=== PATIENT | female | born 1995 | race Caucasian/White ===

== ENCOUNTER 2021-08-14 23:16 | Observation (INO) | payer MEDICAID, OTHER ==
[~2021-08-14] VITALS: Ht 154.9 cm; Wt 62.0 kg
[2021-08-15 01:53] LABS: BASOPHILS % 0.4 % (0.0-2.0); EOSINOPHILS % 0.8 % (0.0-5.0); MEAN CORPUSCULAR HEMOGLOBIN 31.9 pg (28.0-32.0); MEAN CORPUSCULAR VOLUME 93.5 fL (81.0-99.0); MEAN PLATELET VOLUME 7.3 fl (7.4-10.4); MONOCYTES % 7.2 % (2.0-8.0); NEUTROPHILS % 79.6 % (40.0-76.0); PLATELET 345 x1000/uL (130-400); RED BLOOD CELL COUNT 2.13 mill/uL (4.2-5.4); RED CELL DISTRIBUTION WIDTH 13.1 % (11.6-14.6)
[2021-08-15 01:59] LABS: CHLORIDE 106 mEq/L (98-107)
[2021-08-15 02:16] LABS: HEMOGLOBIN. 6.8 g/dL (12.0-16.0)
[2021-08-15 02:17] LABS: HEMATOCRIT. 19.9 % (36.0-48.0)
[2021-08-15 02:23] LABS: B-HCG QUANTITATIVE 2046 mIU/mL (<3)
[2021-08-15] MEDS ORDERED: CEFAZOLIN 1000MG PREMIX 50 ML IV NR (02:30)
[2021-08-15] MEDS ORDERED: OXYTOCIN 30 UNITS in DEXT 5%/LACTATED RINGERS 1,000 ML IV NR (02:45)
[2021-08-15] MEDS ORDERED: LACTATED RINGERS IV NR (02:45)
[2021-08-15] MEDS ORDERED: DEXT IV NR (02:45)
[2021-08-15] MEDS ORDERED: OXYTOCIN IV NR (02:45)
[2021-08-15 07:51] VITALS: BP 108/63
[2021-08-15] MEDS ORDERED: PROPOFOL 200MG/20ML VIAL IV ONE ×2 (08:50→08:59)
[2021-08-15] MEDS ORDERED: FENTANYL CITRATE/PF 50MCG/ML 2ML VIAL ONE (08:50)
[2021-08-15] MEDS ORDERED: MIDAZOLAM HCL 2 MG/2 ML VIAL ONE (08:51)
[2021-08-15] MEDS ORDERED: IBUPROFEN 400MG TABLET PO PRN (09:30)
[2021-08-15] MEDS ORDERED: RHO(D) IMMUNE GLOBULIN 300 MCG/SYR IM PRN (09:30)
[2021-08-15] MEDS ORDERED: ONDANSETRON HCL 4MG/2ML INJ IV PRN (09:45)
[2021-08-15] MEDS ORDERED: HYDROMORPHONE HCL/PF 2MG/ML CPJ IV PRN (09:45)
[2021-08-15] MEDS ORDERED: LABETALOL 5MG/ML SYR 20 MG/4 ML SYRINGE IV PRN (09:45)
[2021-08-15] MEDS ORDERED: MEPERIDINE HCL/PF 25MG/ML CPJ IV PRN (09:45)
[2021-08-15 10:43] LABS: HEMOGLOBIN 6.7 g/dL (12.0-16.0)
[2021-08-15 16:18] LABS: HEMATOCRIT 23.9 % (36.0-48.0); HEMOGLOBIN 7.8 g/dL (12.0-16.0)
== END 2021-08-15 17:15 | disposition home health service (06) ==
LOC: ER 23:16 → 8WST 08-15 02:37 → INTOOBSV 08-15 02:37 → ENRESERV 08-15 08:07 → ORIP 08-15 12:08
PROVIDERS: ADMIT Obstetrics & Gynecology; ATTEND Obstetrics & Gynecology
DX: O03.4 Incomplete spontaneous abortion without complication (principal); Z20.822 Contact with and (suspected) exposure to COVID-19; O99.011 Anemia complicating pregnancy, first trimester; D64.9 Anemia, unspecified; Z3A.11 11 weeks gestation of pregnancy; Z79.899 Other long term (current) drug therapy
CPT/HCPCS: 36415; 59812; 76830; 76856; 80053; 84702; 85014; 85018; 85025; 86850; 86900; 86901; 86920; 87426; 88305; 96365; 96366; 96367; 99291; C9803; J0690; J2250; J2704; J3010; J7121; G0378; P9016

== ENCOUNTER 2021-08-25 07:17 | Emergency (ER) | payer OTHER ==
[~2021-08-25] VITALS: Ht 154.9 cm; Wt 62.0 kg
[2021-08-25] MEDS ORDERED: SODIUM CHLORIDE 0.9% 1,000 ML IV ONE (07:45)
[2021-08-25] MEDS ORDERED: MORPHINE SULFATE 4 MG/ML CPJ (NOT FOR IM USE) IV STA (07:55)
[2021-08-25] MEDS ORDERED: ONDANSETRON HCL 4MG/2ML INJ IV STA (07:55)
[2021-08-25 08:12] LABS: EOSINOPHILS % 4.4 % (0.0-5.0); HEMATOCRIT. 31.8 % (36.0-48.0); HEMOGLOBIN. 10.6 g/dL (12.0-16.0); LYMPHOCYTES % 17.1 % (20.0-50.0); MEAN CORPUSCULAR VOLUME 92.5 fL (81.0-99.0); MEAN PLATELET VOLUME 6.8 fl (7.4-10.4); MONOCYTES % 7.3 % (2.0-8.0); NEUTROPHILS % 70.2 % (40.0-76.0); PLATELET 435 x1000/uL (130-400); RED BLOOD CELL COUNT 3.43 mill/uL (4.2-5.4); RED CELL DISTRIBUTION WIDTH 16.4 % (11.6-14.6)
[2021-08-25 08:18] VITALS: BP 120/74
[2021-08-25 08:26] LABS: HCG SCREEN POSITIVE
[2021-08-25 08:30] LABS: CHLORIDE 107 mEq/L (98-107)
[2021-08-25 08:32] LABS: PROTHROMBIN TIME 10.3 sec (9.6-11.0)
[2021-08-25 08:35] LABS: B-HCG QUANTITATIVE 22 mIU/mL (<3)
[2021-08-25 09:10] LABS: CLARITY URINE CLEAR (CLEAR); COLOR URINE YELLOW (YELLOW); KETONES URINE NEGATIVE (NEGATIVE); LEUKOCYTE ESTERASE URINE 1+ (NEGATIVE); NITRITE URINE NEGATIVE (NEGATIVE); OCCULT BLOOD URINE TRACE (NEGATIVE); PH URINE 7.5 (4.5-8.0); PROTEIN URINE NEGATIVE (NEGATIVE); SPECIFIC GRAVITY URINE 1.017 (1.005-1.030); UROBILINOGEN URINE 0.2 E.U./dL (0.2-1.0)
[2021-08-25] MEDS ORDERED: CEFTRIAXONE 1 G PREMIX 50 ML IV ONE (10:45)
[2021-08-25] MEDS ORDERED: CEPH500C2 MT (12:08)
[2021-08-25] MEDS ORDERED: IBUP-2029 MT (12:08)
== END 2021-08-25 12:39 | disposition home or self-care (01) ==
LOC: ER 07:17
DX: R10.2 Pelvic and perineal pain (principal); N39.0 Urinary tract infection, site not specified; R10.32 Left lower quadrant pain
CPT/HCPCS: 36415; 74176; 76830; 76856; 80053; 81003; 81025; 83690; 84702; 84703; 85025; 85610; 86850; 86900; 86901; 87086; 96361; 96365; 96375; 99285; J0696; J2270; J2405; J7030

== ENCOUNTER 2023-10-04 09:49 | Emergency (ER) | payer OTHER ==
[~2023-10-04] VITALS: Ht 160 cm; Wt 60.0 kg
[~2023-10-04 09:49] MED LIST: CEPH500C2 MT; IBUP-2029 MT
[2023-10-04 09:56] VITALS: O2SAT 100
[2023-10-04 10:55] LABS: HEMATOCRIT. 41.5 % (36.0-48.0); HEMOGLOBIN. 14.2 g/dL (12.0-16.0); MEAN CORPUSCULAR HEMOGLOBIN 32.4 pg (28.0-32.0); MEAN CORPUSCULAR HGB CONC 34.1 g/dL (31.0-37.0); MEAN CORPUSCULAR VOLUME 94.9 fL (81.0-99.0); MEAN PLATELET VOLUME 8.1 fl (7.4-10.4); PLATELET 270 x1000/uL (130-400); RED BLOOD CELL COUNT 4.37 mill/uL (4.2-5.4); RED CELL DISTRIBUTION WIDTH 13.3 % (11.6-14.6); WHITE BLOOD COUNT 7.3 x1000/uL (4.5-11.0)
[2023-10-04] MEDS: MAGNESIUM/ALUMINUM HYDROXIDE/SIMETHICONE 30ML UDC PO STA (10:56)
[2023-10-04 10:57] LABS: DIFFERENTIAL COMMENT 1
[2023-10-04 11:02] LABS: HCG SCREEN NEGATIVE
[2023-10-04] MEDS: FAMOTIDINE 20MG/2ML VIAL IV STA (11:05)
[2023-10-04] MEDS: ONDANSETRON HCL 4MG/2ML INJ IV STA (11:05)
[2023-10-04 11:06] LABS: CHLORIDE 108 mEq/L (98-107); POTASSIUM 4.5 mEq/L (3.5-5.1); SODIUM 139 mEq/L (136-145)
[2023-10-04 11:07] LABS: CALCIUM 9.4 mg/dL (8.7-10.4); CARBON DIOXIDE 27 mEq/L (21-32)
[2023-10-04 11:08] LABS: INR 0.9; PROTHROMBIN TIME 10.6 sec (9.6-11.0)
[2023-10-04 11:12] LABS: CREATININE 0.7 mg/dL (0.6-1.0); GLUCOSE 95 mg/dL (70-105); UREA NITROGEN BLOOD 6 mg/dL (9-23)
[2023-10-04 11:14] LABS: ALANINE AMINOTRANSFERASE 20 IU/L (10-49); ALBUMIN 4.4 g/dL (3.2-4.8); ASPARTATE AMINOTRANSFERASE 18 IU/L (<34); BILIRUBIN DIRECT 0.2 mg/dL (<=3.0); BILIRUBIN TOTAL 0.6 mg/dL (0.1-1.0); PROTEIN TOTAL 6.8 g/dL (6.0-8.3)
[2023-10-04] MEDS ORDERED: FAMO-135 MT (11:29)
[2023-10-04 11:45] VITALS: BP 104/65; PULSE 67; RESP 20; TEMP 98.7
[2023-10-04 12:01] LABS: PLATELET ESTIMATE NORMAL
== END 2023-10-04 11:45 | disposition home or self-care (01) ==
LOC: ER 09:49
DX: R10.12 Left upper quadrant pain (principal); R11.2 Nausea with vomiting, unspecified
CPT/HCPCS: 99284; 96374; 96375; 80076; 80048; 81025; 84703; 83690; 85025; 85610; 36415; J3490; J2405

== ENCOUNTER 2024-04-11 13:24 | Emergency (ER) | payer OTHER ==
[~2024-04-11] VITALS: Ht 154.9 cm; Wt 68.0 kg
[~2024-04-11 13:24] MED LIST changes: +FAMO-135 MT
[2024-04-11 13:25] VITALS: O2SAT 99
[2024-04-11 13:30] VITALS: TEMP 36.6; O2SAT 100
[2024-04-11] MEDS ORDERED: IBUPROFEN 600MG TABLET PO STA (14:36)
[2024-04-11 15:10] LABS: BASOPHILS % 0.4 % (0.0-2.0); EOSINOPHILS % 8.6 % (0.0-5.0); HEMATOCRIT. 43.7 % (36.0-48.0); HEMOGLOBIN. 14.3 g/dL (12.0-16.0); LYMPHOCYTES % 26.8 % (20.0-50.0); MEAN CORPUSCULAR HEMOGLOBIN 30.7 pg (28.0-32.0); MEAN CORPUSCULAR HGB CONC 32.8 g/dL (31.0-37.0); MEAN CORPUSCULAR VOLUME 93.7 fL (81.0-99.0); MEAN PLATELET VOLUME 8.1 fl (7.4-10.4); MONOCYTES % 7.8 % (2.0-8.0); NEUTROPHILS % 56.4 % (40.0-76.0); PLATELET 326 x1000/uL (130-400); RED BLOOD CELL COUNT 4.66 mill/uL (4.2-5.4); RED CELL DISTRIBUTION WIDTH 12.9 % (11.6-14.6); WHITE BLOOD COUNT 9.1 x1000/uL (4.5-11.0)
[2024-04-11 15:15] LABS: CHLORIDE 107 mEq/L (98-107); POTASSIUM 4.5 mEq/L (3.5-5.1); SODIUM 141 mEq/L (136-145)
[2024-04-11 15:16] LABS: CALCIUM 9.5 mg/dL (8.7-10.4); CARBON DIOXIDE 26 mEq/L (21-32)
[2024-04-11 15:21] LABS: CREATININE 0.7 mg/dL (0.6-1.0); GLUCOSE 104 mg/dL (70-105); UREA NITROGEN BLOOD 7 mg/dL (9-23)
[2024-04-11 15:35] LABS: TROPONIN I HIGH SENSITIVITY < 4 ng/L (3.0-34)
[2024-04-11] MEDS ORDERED: IBUP-2028 MT (16:27)
[2024-04-11 17:15] VITALS: BP 128/78; PULSE 83; RESP 16
[2024-04-11] MEDS: IBUPROFEN 600MG TABLET PO SCH (17:15)
== END 2024-04-11 19:58 | disposition home or self-care (01) ==
LOC: ER 13:31
DX: M54.2 Cervicalgia (principal); R07.89 Other chest pain; Z98.890 Other specified postprocedural states; Z79.899 Other long term (current) drug therapy
CPT/HCPCS: 36415; 71045; 80048; 84484; 85025; 93005; 99285

== ENCOUNTER 2025-01-20 19:21 | Emergency (ER) | payer OTHER ==
[~2025-01-20] VITALS: Ht 154.9 cm; Wt 68.0 kg
[~2025-01-20 19:21] MED LIST changes: +IBUP-1455 MT; +IBUP-2028 MT; -IBUP-2029 MT
[2025-01-20 19:40] VITALS: O2SAT 100
[2025-01-20] MEDS: FAMOTIDINE 20MG TABLET PO ONE (23:40)
[2025-01-20 23:44] LABS: BASOPHILS % 0.4 % (0.0-2.0); EOSINOPHILS % 1.3 % (0.0-5.0); HEMATOCRIT. 39.2 % (36.0-48.0); HEMOGLOBIN. 13.3 g/dL (12.0-16.0); LYMPHOCYTES % 15.6 % (20.0-50.0); MEAN PLATELET VOLUME 7.9 fl (7.4-10.4); MONOCYTES % 4.4 % (2.0-8.0); NEUTROPHILS % 78.3 % (40.0-76.0); PLATELET 310 x1000/uL (130-400); RED BLOOD CELL COUNT 4.18 mill/uL (4.2-5.4); RED CELL DISTRIBUTION WIDTH 13.1 % (11.6-14.6)
[2025-01-20 23:56] LABS: CREATININE 0.6 mg/dL (0.6-1.0); UREA NITROGEN BLOOD 6 mg/dL (9-23)
[2025-01-20 23:57] LABS: TROPONIN I HIGH SENSITIVITY < 4 ng/L (3.0-34)
[2025-01-20 23:58] LABS: ASPARTATE AMINOTRANSFERASE 11 IU/L (<34); BILIRUBIN DIRECT < 0.1 mg/dL (<=3.0); BILIRUBIN TOTAL 0.3 mg/dL (0.1-1.0); PROTEIN TOTAL 7.0 g/dL (6.0-8.3)
[2025-01-21] MEDS ORDERED: ACET-2708 MT (01:57)
[2025-01-21] MEDS ORDERED: OMEP20CA14 MT (01:57)
[2025-01-21] MEDS ORDERED: CALC-586 MT (01:57)
[2025-01-21 02:41] VITALS: BP 110/76; PULSE 73; RESP 16; TEMP 36.9; O2SAT 100
== END 2025-01-21 02:36 | disposition home or self-care (01) ==
LOC: ER 19:21
DX: K21.9 Gastro-esophageal reflux disease without esophagitis (principal); M54.2 Cervicalgia; R42 Dizziness and giddiness; Z79.899 Other long term (current) drug therapy; Z79.1 Long term (current) use of non-steroidal anti-inflammatories (NSAID)
CPT/HCPCS: 36415; 71045; 80048; 80076; 84484; 85025; 93005; 99285